=== PATIENT | male | born 1950 | race Caucasian/White ===

== ENCOUNTER → 2018-08-22 14:23 | Outpatient (CLI) | payer MEDICARE, SELFPAY ==
--- NOTE | 2018-08-22 14:27 | CT_ITS ---
CT lung screening EXAM: CT LUNG LOW DOSE WO CONTRAST HISTORY: 60 pack-year smoking history, asymptomatic for lung cancer ITS.REASON: CURRENT TOBACCO USE ORDERING PHYSICIAN: Mis Reyna MD PATIENT AGE: 67 years COMPARISON: None TECHNIQUE: The exam was performed on a GE Light Speed [address] scanner using 2.90 mGy CTDI. A low dose helical CT CHEST was performed on a multi-detector scanner. All CT scans at the facility use one or more dose reduction, viz: automated exposure control, ma/kV adjustment per patient size (including targeted exams where dose is matched to indication, i.e. head), or iterative reconstruction technique. The LDCT was performed in a facility that meets the criteria for the screening program. Data regarding this exam was submitted to [employer] which is an approved registry. The order for this exam indicates that it came as a result of a lung cancer screening counseling shard decision-making visit that included all the elements required of such a visit including smoking cessation. The radiologist interpreting this exam meets the [facility] criteria for the LDCT lung cancer screening program. The exam is reported using the Lung-RADS classification scale and reported to the ACR registry. NOTE: This study was performed for the specific purposes of lung cancer screening and is not an alternative to diagnostic chest CT. RADIATION DOSE: CTDI vol(CT dose Index-volume) = 2.90mG DLP (Dose Length Product) = 120.11 mGcm FINDINGS: There are fairly extensive coronary artery calcifications. Centrilobular and paraseptal emphysematous changes are present there is a noncalcified 4 mm nodule in the right upper lobe anteriorly. Calcified granuloma is present in the right perihilar region apical fibrotic changes are noted on the right. Calcified granuloma is present in the left upper lobe. There is hyperinflation with attenuation of the peripheral pulmonary vessels consistent with COPD there is ankylosis of the thoracic spine.. There is mild gynecomastia IMPRESSION: 1. Lung RADS Category: 2, benign 2. Other findings: COPD, centrilobular and paraseptal emphysema, coronary artery calcifications consistent with coronary artery disease RECOMMENDATIONS: 12 month LDCT follow-up
== END ==
PROVIDERS: PCP Family Medicine; Visit Provider Family Medicine
DX: Z12.2 Encounter for screening for malignant neoplasm of respiratory organs (principal); Z87.891 Personal history of nicotine dependence

== ENCOUNTER → 2022-02-03 17:06 | Outpatient (CLI) | payer MEDICARE, SELFPAY ==
[2022-02-03 19:39] LABS: Anion Gap 18.2 mEq/L (5-15); Blood Urea Nitrogen 25 mg/dl (9-20); Carbon Dioxide 21 mmol/L (22.0-30.0); Chloride 103 mmol/L (98-107); Potassium 4.2 mmoL/L (3.5-5.1); Sodium 138 mmol/L (136-145)
[2022-02-03 19:40] LABS: Alanine Aminotransferase 21 U/L (12-78); Albumin Level 4.1 g/dl (3.5-5.0); Albumin/Globulin Ratio 1.5 (1.1-1.8); Alkaline Phosphatase 98 U/L (38-126); Aspartate Amino Transferase 35 U/L (17-59); Bilirubin,Total 0.6 mg/dl (0.2-1.3); Calcium 9.3 mg/dl (8.4-10.2); Estimated Glomerular Filt Rate 83 ml/min (>60); GFR (African American) 100 ML/MIN (>60); Globulin 2.8 g/dL (1.3-3.2); Glucose 112 mg/dl (74-100); Total Protein,Serum 6.9 g/dl (6.3-8.2)
[2022-02-03 20:10] LABS: Prostate Specific Ag Screen 4.1 ng/ml (0.0-4.0)
== END ==
PROVIDERS: PCP Family Medicine; Visit Provider Family Medicine
DX: I10 Essential (primary) hypertension (principal); N40.1 Benign prostatic hyperplasia with lower urinary tract symptoms; R39.12 Poor urinary stream; Z12.5 Encounter for screening for malignant neoplasm of prostate
CPT/HCPCS: 80053; G0103